=== PATIENT | female | born 1975 | race Caucasian/White ===

== ENCOUNTER 2022-11-03 09:50 | Observation (INO) ==
--- NOTE | 2022-06-14 15:51 | PAT Medication Instructions ---
Medication Instructions Date of Service June 14, 2022 Home Medications Medication Instructions Recorded ondansetron 4 mg disintegrating 4 mg PO Q6H PRN nausea and 09/13/21 tablet vomiting #12 tabs albuterol sulfate 90 mcg/actuation 1 inh inhalation QID PRN shortness 06/08/22 aerosol inhaler of breath or wheezing #8.5 grams prednisone 10 mg tablet See Rx Instructions PO DAILY #20 06/08/22 tabs lisinopril 2.5 mg tablet 2.5 mg PO QAM metformin 500 mg tablet 500 mg PO BID rizatriptan 10 mg tablet (Maxalt) 10 mg PO UD PRN sertraline 50 mg tablet (Zoloft) 50 mg PO QAM ibuprofen 200 mg tablet 400 mg PO Q6H PRN levonorgestrel 20 mcg/24 hours (8 yrs) 52 mg intrauterine device (Mirena) 20 mcg intrauterine UD melatonin 5 mg tablet 5 mg PO HS PRN zolpidem 5 mg tablet 5 mg PO HS PRN ondansetron 4 mg disintegrating tablet 4 mg PO Q6H PRN albuterol sulfate 90 mcg/actuation aerosol inhaler 1 inh inhalation QID PRN dextromethorphan polistirex 30 mg/5 mL oral susp ext.release 12hr (Robitussin ER) 10 ml PO Q12H PRN diphenhydramine HCl 25 mg capsule (Benadryl) 25 mg PO TID PRN prednisone 10 mg tablet See Rx Instructions PO DAILY Continue as directed prednisone 10 mg tablet See Rx Instructions PO DAILY rizatriptan 10 mg tablet (Maxalt) 10 mg PO UD PRN(if needed) levonorgestrel 20 mcg/24 hours (8 yrs) 52 mg intrauterine device (Mirena) 20 mcg intrauterine UD ondansetron 4 mg disintegrating tablet 4 mg PO Q6H PRN(if needed) ASK your surgeon for instructions ibuprofen 200 mg tablet 400 mg PO Q6H PRN DO NOT take the morning of surgery lisinopril 2.5 mg tablet 2.5 mg PO QAM metformin 500 mg tablet 500 mg PO BID dextromethorphan polistirex 30 mg/5 mL oral susp ext.release 12hr (Robitussin ER) 10 ml PO Q12H PRN diphenhydramine HCl 25 mg capsule (Benadryl) 25 mg PO TID PRN Take morning of surgery With a small sip of water, OTHERWISE NOTHING TO EAT OR DRINK AFTER MIDNIGHT: sertraline 50 mg tablet (Zoloft) 50 mg PO QAM albuterol sulfate 90 mcg/actuation aerosol inhaler 1 inh inhalation QID PRN(use if needed; please bring with you to hospital day of surgery if possible) Take evening before surgery metformin 500 mg tablet 500 mg PO BID melatonin 5 mg tablet 5 mg PO HS PRN(if needed) zolpidem 5 mg tablet 5 mg PO HS PRN(if needed) albuterol sulfate 90 mcg/actuation aerosol inhaler 1 inh inhalation QID PRN(if needed) dextromethorphan polistirex 30 mg/5 mL oral susp ext.release 12hr (Robitussin ER) 10 ml PO Q12H PRN(if needed) diphenhydramine HCl 25 mg capsule (Benadryl) 25 mg PO TID PRN(if needed) Other Notes If you have any questions please call us at [phone] or [phone] or [phone] or [phone]
--- NOTE | 2022-10-27 09:06 | Anesthesiology Consultation ---
Date of Service October 27, 2022 Assessment & Plan (1) Encounter for pre-operative examination: - COVID screening: Per assessment on 10/27: No known COVID-19 positive contacts or current COVID-19 related symptoms. Travel screen negative. Patient vaccinated. At surgeon discretion if preop Covid testing being done. - Check BSG, test AM DOS - Outpatient joint assessment: Pt currently scheduled for inpatient pathway. If surgeon requests review for outpatient joint pathway, patient is not recommended candidate for outpatient joint program from anesthesia standpoint. Chart Review Chart Review: Acceptable Risk for Surgery and Patient NOT seen in Pre Admission Testing History Surgery Operation Date: 11/03/22 07:00 Proposed Procedures p Left Total Knee Arthroplasty - Brian Yancey, Height/Weight Height: 5 ft 6 in Weight: 127.006 kg Allergies Allergy/AdvReac Type Severity Reaction Status Date / Time No Known Drug Allergies AdvReac Verified 10/27/22 08:11 CT dye AdvReac Intermediate Vomiting, Uncoded 10/27/22 08:11 nausea Medications Home Medications Medication Instructions Recorded Confirmed Last Taken rizatriptan 10 mg tablet (Maxalt) 10 mg PO UD PRN MIGRAINES 02/04/20 10/27/22 Unknown sertraline 50 mg tablet (Zoloft) 50 mg PO QAM 02/10/20 10/27/22 03/01/21 05:00 ibuprofen 200 mg tablet 400 mg PO Q6H PRN Pain 01/27/21 10/27/22 02/28/21 12:00 levonorgestrel 21 mcg/24 hours (8 20 mcg intrauterine UD 02/23/21 10/27/22 03/03/21 yrs) 52 mg intrauterine device (Mirena) melatonin 5 mg tablet 5 mg PO HS PRN Sleep 02/23/21 10/27/22 02/27/21 21:00 zolpidem 5 mg tablet 5 mg PO HS PRN Sleep 02/23/21 10/27/22 02/28/21 21:00 albuterol sulfate 90 mcg/actuation 1 inh inhalation QID PRN shortness 06/08/22 10/27/22 Unknown aerosol inhaler of breath or wheezing #8.5 grams diphenhydramine HCl 25 mg capsule 25 mg PO TID PRN Allergy Symptoms 06/08/22 10/27/22 Unknown (Benadryl) ondansetron 4 mg disintegrating 4 mg PO Q6H PRN nausea and 08/14/22 10/27/22 Unknown tablet vomiting #12 tabs cinnamon bark 500 mg capsule 1,000 mg PO QAM 09/14/22 10/27/22 Unknown lisinopril 20 1 tab PO QAM 09/14/22 10/27/22 Unknown mg-hydrochlorothiazide 12.5 mg tablet milk thistle 175 mg tablet 350 mg PO QAM 09/14/22 10/27/22 Unknown omeprazole 20 mg capsule,delayed 20 mg PO DAILY PRN REFLUX 09/14/22 10/27/22 Unknown release tramadol 50 mg tablet 50 mg PO Q8H PRN pain #30 tabs 10/17/22 10/27/22 Unknown glipizide 5 mg tablet 5 mg PO QAM 10/27/22 10/27/22 Unknown metformin 500 mg tablet,extended 500 mg PO QAM 10/27/22 10/27/22 Unknown release 24 hr vitamin-ferrous sulfate 1 tab PO QAM 10/27/22 10/27/22 Unknown 27 mg iron-folic acid 0.8 mg tablet Past Medical History Medical History (Updated 10/27/22 @ 08:10 by Whitney Mathews RN) Anxiety Diabetes mellitus, type 2 History of COVID-19 06/18/22>RESOLVED History of migraine Hypertension Morbid obesity with BMI of 45.0-49.9, adult Osteoarthritis PCOS (polycystic ovarian syndrome) Past Family History Family History Mother Breast cancer, Onset Age: 65 Denies family history of Ovarian cancer Prostate cancer Myocardial infarction Colorectal cancer Past Surgical History Surgical History (Updated 10/27/22 @ 08:16 by Whitney Mathews RN) History of arthroscopy of left knee History of D&C Nausea and vomiting after administration of anesthetic agent S/P section S/P laparoscopic procedure 20s, to look at ovaries S/P lumbar fusion S/P wisdom tooth extraction Slow to wake up after anesthesia Social History Smoking Status: Former smoker tobacco type: cigarettes Do You Dip or Chew Tobacco: No Smoking End Date: > 20 years ago Hx Alcohol Use: Yes Alcohol type: beer, wine and hard liquor alcohol intake frequency: holidays/special occasions only Hx Substance Use: No substance use type: does not use Lab Results Anesthesia Preop Results Results Anesthesia Widget: WBC 7.35 K/ul (4.8-10.8) 09/25/22 Hgb 14.7 g/dl (12.0-16.0) 09/25/22 Hct 43.4 % (37.0-47.0) 09/25/22 Plt 262 K/uL (130-400) 09/25/22 Na 138 mmol/L (136-145) 09/25/22 K 4.1 mmol/L (3.5-5.1) 09/25/22 Cl 106 mmol/L (98-107) 09/25/22 CO2 29 mmol/L (21-32) 09/25/22 BUN 10 mg/dl (6-23) 09/25/22 Creat 0.65 mg/dl (0.6-1.2) 09/25/22 Glucose Level 116 mg/dl (70-99(Fasting)) H 09/25/22 PT 10.2 Seconds (9.0-12.0) 09/25/22 PTT 27.7 Seconds (21.0-31.0) 09/25/22 INR 1.0 (0.9-1.1) 09/25/22 HA1c 6.7 % (4.5-5.6) H 09/25/22 Blood Type O Positive 09/25/22 Antibody Screen NEGATIVE 09/25/22 Testing Electrocardiogram Date: 06/18/22 NSR at 98bpm. Low voltage QRS. Septal infarct (cited on or before 01/27/21). 01/27/21 EKG was reviewed/used for preop testing for prior to 03/03/21 left knee arthroscopy done at [facility] without issue. Patient had PAT RN phone interview 10/27/22 in which patient denies SOB with stairs, no cardiopulmonary complaints.
[~2022-11-03 09:50] MED LIST: ACETAMINOPHEN 500 MG TAB PO SCH; FAMOTIDINE 20 MG TAB PO SCH; GABAPENTIN 300 MG CAP PO SCH; LR 500ML BOLUS, THEN 15ML/HR IV SCH; LR 60ML/HR IV SCH; ORTHO JOINT MIX INFIL SCH; ROPIVACAINE 0.5% 5 MG/ML 30 ML VIAL ONE; TRANEXAMIC ACID 1,000 MG **IV Intra-op IV SCH; TRANEXAMIC ACID 1,000 MG **IV Pre-op IV SCH; dexAMETHasone 4 MG TAB PO SCH
[2022-11-03] MEDS ORDERED: MIDAZOLAM HCL 1 MG/ML 2ML VIAL ONE ×2 (11:38→11:39)
[2022-11-03] MEDS ORDERED: PROPOFOL IV EMULSION 10 MG/ML 20 ML VIAL IV ONE ×3 (11:38→13:48)
[2022-11-03] MEDS ORDERED: fentaNYL citrate PF 100 MCG/2 ML VIAL ONE (11:39)
--- NOTE | 2022-11-03 12:06 | History & Physical Bridge Note ---
Date of Service November 03, 2022 History & Physical Bridge Note I have examined the patient, reviewed the History & Physical and in the interval since the performance of the History & Physical I have noted the following changes of clinical significance: no changes noted
[2022-11-03] MEDS ORDERED: ORTHO JOINT ANESTHETIC ONE (12:35)
[2022-11-03] MEDS ORDERED: fentaNYL citrate PF 100 MCG/2 ML VIAL IV PRN (12:48)
[2022-11-03] MEDS ORDERED: ePHEDrine sulfate 50 MG/ML AMP IV PRN (12:48)
[2022-11-03] MEDS ORDERED: ONDANSETRON INJ 2 MG/ML 2 ML VIAL IV PRN ×2 (12:48→16:10)
[2022-11-03] MEDS ORDERED: KETOROLAC 30 MG/ML VIAL IV PRN (12:48)
[2022-11-03] MEDS ORDERED: ATROPINE SULFATE 0.1 MG/ML 10ML SYR IV PRN (12:48)
[2022-11-03] MEDS ORDERED: ONDANSETRON INJ 2 MG/ML 2 ML VIAL ONE (13:16)
[2022-11-03] MEDS ORDERED: KETAMINE 50 MG/5 ML SYRINGE ONE (13:17)
[2022-11-03] MEDS ORDERED: GLYCOPYRROLATE 0.2 MG/ML VIAL ONE (13:19)
[2022-11-03] MEDS ORDERED: ceFAZolin 330 MG/ML 1 GM VIAL ONE (13:23)
--- NOTE | 2022-11-03 14:27 | Operative Report ---
PG Post Operative Report Pre & Post Diagnosis Operation Date: 11/03/22 12:50 Pre-Op Diagnosis: DJD Left Knee Post-Op Diagnosis: DJD Left Knee I identified the patient and participated in the time-out.: Yes Procedure Operation Date: 11/03/22 12:50 Actual Procedures p Left Total Knee Arthroplasty(Left) - Brian Yancey DO Surgeon Brian Yancey DO Education Reporter Dank Guillermo PA-C Estimated Blood Loss 30 Findings Consistent with Post-Op Diagnosis Specimens Left femoral tibial bone Description of Procedure Implants used: I used a Anjelica Persona total knee arthroplasty system with a size 8 narrow femur, D tibia, 31 oval patella, and a size 12 medial congruent polyethylene bearing. All components were cemented in place with Biomet cement. Parvin arrived [facility] for the above procedure. She was seen in the preoperative holding area and the operative extremity was identified and signed. She was given a preoperative antibiotic, TXA, a spinal anesthetic and an adductor nerve block. She was taken back to the operating room and laid on the table in supine position. She was given basic sedation. The operative knee was then prepped and draped in sterile fashion. A timeout was done, and the patient and the operative extremity was properly identified. A midline incision was made directly over the patella. Dissection was taken down to the extensor mechanism. A midvastus arthrotomy was used. The medial retinaculum was released and the fat pad was mostly excised. The knee was flexe d and the ACL, PCL, and meniscus were removed. A drill was sent down the center of the femoral canal followed by an intramedullary ivan. Off that ivan a distal femoral cutting block was placed. 9 mm was resected off the distal femur at 5 of valgus. A posterior referencing AP sizing guide was then placed on the distal femur. The femur measured to be a size 8. 2 drill holes were placed in 3 of external rotation. A 4-in-1 cutting block was then impacted into place. Anterior, posterior, and chamfer cuts were then made. The proximal tibia was then exposed. An external tibial alignment guide was placed. A tibial cut guide was then anchored in place and the proximal tibia was then resected. The posterior aspect of the knee was then opened up and any additional meniscus fragments and osteophytes were removed. The tibia measured to be a size D. The tibial plate was then placed in the appropriate rotation and the tibia was drilled and punched. Trial components were then placed. I used a size 12 medial congruent polyethylene insert. The knee was brought through a full range of motion and felt to be stable. The peg holes for the femoral component were then drilled. The patella was then everted and 9 mm was resected off the posterior aspect of the patella. The patella measured to be a size 31 oval. 3 peg holes were then drilled. A trial patella was placed. The knee was once again brought through a full range of motion and felt to be stable. Trial components were then removed. The surrounding soft tissues were injected with 100 cc of an orthopedic pain control cocktail. All components were then cemented into place with Biomet cement. The final polyethylene insert was then snapped into place. Once cement was dry the tourniquet was deflated. Hemostasis was obtained. A dilute betadyne lavage was then done for 3 minutes. The joint was then irrigated with normal saline solution. The midvastus arthrotomy was then closed with #1 Vicryl suture. The skin was closed with 2-0 Vicryl, 3-0V lock suture, and viki. A soft compressive dressing was placed. She was then transferred to a hospital bed and taken to the postanesthesia care unit in stable condition. She tolerated the procedure well. Dank Guillermo PA-C, was present for the entire procedure. He was critical for patient positioning, prepping, draping, retraction exposure, wound closure and application of sterile dressing. I attest to the content of the Intraoperative Record and any orders documented therein. Any exceptions are noted below.
--- NOTE | 2022-11-03 15:17 | XRay Report ---
LEFT KNEE 2 VIEWS History: Left total knee arthroplasty. Degenerative arthritis. Postop. FINDINGS: The patient is status post a left total knee arthroplasty. The hardware is intact. No fract ure or dislocation. Skin viki are in place. IMPRESSION: Left total knee arthroplasty. No evidence for hardware complication. ACT 112: Negative or not required by law. Electronically signed by: Noah Pan M.D. 11/03/2022 3:15 PM
[2022-11-03] MEDS ORDERED: SODIUM CHLORIDE 0.9% 1000ML 1,000 ML IV SCH (16:10)
[2022-11-03] MEDS ORDERED: ONDANSETRON 4 MG OD TAB PO PRN (16:10)
[2022-11-03] MEDS ORDERED: MAGNESIUM HYDROXIDE SUSP 30 ML UDC PO PRN (16:10)
[2022-11-03] MEDS ORDERED: bisacodyL 10 MG SUPP PR PRN (16:10)
[2022-11-03] MEDS ORDERED: diphenhydrAMINE Capsule 25 MG CAP PO PRN (16:10)
[2022-11-03] MEDS ORDERED: METOCLOPRAMIDE HCL INJ 5 MG/ML 2 ML VIAL IV PRN (16:10)
[2022-11-03] MEDS ORDERED: PHARMACY GLYCEMIC MGMT CONSULT PRN (16:10)
[2022-11-03] MEDS ORDERED: NALOXONE HCL 0.4 MG/1 ML VIAL/CARP IV PRN (16:10)
[2022-11-03] MEDS ORDERED: RIZATRIPTAN BENZOATE 10 MG TAB PO PRN (16:10)
[2022-11-03] MEDS ORDERED: ALBUTEROL HFA 8 GM INHALER INH PRN (16:10)
[2022-11-03] MEDS ORDERED: MELATONIN 3 MG TAB PO PRN (16:17)
--- NOTE | 2022-11-03 16:31 | Anesthesiology Progress Note ---
Date of Service November 03, 2022 Anesthesia Post Procedure Vital Signs Vital Signs: Temp Pulse Pulse Pulse Resp BP Pulse Ox 11/03/22 16:03 36.7 C 89 16 117/80 93 11/03/22 15:50 84 18 114/87 94 11/03/22 15:35 92 H 18 129/90 94 11/03/22 15:20 36.3 C L 93 H 16 105/69 94 11/03/22 15:10 107 H 13 116/83 95 11/03/22 15:00 105 H 20 114/80 96 11/03/22 14:53 36.2 C L 101 H 14 122/74 98 11/03/22 10:32 36.8 C 93 H 20 129/84 97 O2 Del Method O2 Flow Rate 11/03/22 16:03 Room Air 11/03/22 15:50 Room Air 11/03/22 15:35 Room Air 11/03/22 15:20 Room Air 11/03/22 15:10 Room Air 11/03/22 15:00 Oxymask 4 11/03/22 14:53 Oxymask 6 11/03/22 10:32 Room Air Transfer of Care Handoff Completed per policy Notes Mental Status: alert / awake / arousable Patient Amnestic to Procedure: Yes Nausea / Vomiting: adequately controlled Pain: adequately controlled Airway Patency, RR, SpO2: stable & adequate BP & HR: stable & adequate Hydration State: stable & adequate Neuraxial Anesthesia: was administered and sensory block is resolving Anesthetic Complications: no major complications apparent
[2022-11-03] MEDS ORDERED: PANTOprazole 40 MG TAB PO PRN (16:34)
[2022-11-03] MEDS ORDERED: CARBOHYDRATES FOR HYPOGLYCEMIA PO PRN (17:15)
[2022-11-03] MEDS ORDERED: DEXTROSE 50% 50 ML SYRINGE IV PRN (17:15)
[2022-11-03] MEDS ORDERED: GLUCOSE 10 TAB/TUBE PO PRN (17:15)
[2022-11-03] MEDS ORDERED: GLUCAGON FOR INJ 1 MG VIAL IM PRN (17:15)
[2022-11-03] MEDS ORDERED: GLUCOSE 40% GEL 15 GM TUBE PO PRN (17:15)
[2022-11-03] MEDS: INSULIN ASPART PER UNIT CHARGE SC SCH ×2 (17:57→20:36)
[2022-11-03] MEDS ORDERED: LANTUS PER UNIT CHARGE SQ ONE (18:45)
[2022-11-03] MEDS: oxyCODONE HCL IR 5 MG TAB (IMMEDIATE RELEASE) PO PRN ×2 (19:30→23:28)
[2022-11-03] MEDS: ASPIRIN 81 MG ECTAB PO SCH (20:38)
[2022-11-03] MEDS: DOCUSATE SODIUM 100 MG CAP PO SCH (20:38)
[2022-11-03] MEDS ORDERED: SENNA 8.6 MG TAB PO SCH (21:00)
[2022-11-03] MEDS: ceFAZolin 2000MG 2,000 MG/15 ML SYR IV SCH (21:51)
[2022-11-04] MEDS: ceFAZolin 2000MG 2,000 MG/15 ML SYR IV SCH (05:41)
--- NOTE | 2022-11-04 06:48 | Orthopedic Progress Note ---
Date of Service November 04, 2022 Assessment & Plan (1) Status post left knee replacement: Overall she is doing very well. She is not having much pain in the left knee. She will be seen by physical therapy today for ambulation and range of motion exercises. She can be discharged home later today. She is on aspirin for DVT prophylaxis. She will follow-up with orthopedics in 2 weeks. Jet Barber was seen and examined at bedside this morning. Overall she is doing very well. She is not having much pain in the left knee. She has been up and ambulating to the bathroom. She has no complaints.. Review of Systems All systems reviewed & are unremarkable except as noted in HPI & below. Physical Exam On physical examination of left knee, the dressing is clean and dry. Her leg is out full extension. She has active dorsiflexion plantarflexion of her left ankle.. Results & Data Results & Data Laboratory Results . Diagnostic Findings Postoperative x-rays of the left knee show the prosthesis to be in anatomic alignment without any evidence of fracture, cage, or loosening.. PG Care Time/CCT Total # of Minutes Spent Total Time Spent with Patient: Total time spent is greater than 50% in coordination of care (as documented) at patient's floor/unit and/or counseling patient: Coding Level of Care Code 95287 Post Operative Follow-Up Diagnoses Status post left knee replacement Z96.652
--- NOTE | 2022-11-04 06:49 | Discharge Summary ---
Date of Service November 04, 2022 Principal Diagnosis Same as "Discharge Diagnosis" noted below under Discharge Instructions. Discharge Exam On physical examination of left knee, the dressing is clean and dry. Her leg is out full extension. She has active dorsiflexion plantarflexion of her left ankle.. Discharge Data Procedures Performed Operation Date: 11/03/22 12:50 Actual Procedures p Left Total Knee Arthroplasty(Left) - Brian Yancey DO Ordered Studies 11/03/22 05:00 US - OR guided needle placemen Routine Hospital Course (1) Status post left knee replacement: On November 03, 2022 [place] arrived at [facility] and underwent a left knee replacement without complication. She had a spinal anesthetic. Postoperatively she was started on aspirin for DVT prophylaxis and transferred to the general orthopedic floors. Her hospital course was uneventful. On postop day #1, her vital signs were stable and her pain was well controlled. She was able to participate well with physical therapy doing ambulation and range of motion exercises. She was then discharged home. She will follow-up with orthopedics in 2 weeks. PG Care Time/CCT Total # of Minutes Spent Total Time Spent with Patient: Total time spent is greater than 50% in coordination of care (as documented) at patient's floor/unit and/or counseling patient: Discharge Plan Discharge Items Patient Disposition: Home - Home Health Services Reason For Visit: POST OP Discharge Diagnosis: Left knee replacement Activity: Per Instructions section Non-emergency contact: Surgeon Call non-emergency contact if: your wound has increased redness and your wound has increased drainage Follow-up/Referrals: Felisha Steven CRNP [Primary Care Provider] - Diet: Regular Addtl Attending Provider Instructions: Activity and Therapy Recommendations: * If you are using [facility] then therapy will be provided at your home until they feel you have accomplished all of your goals. * If you are using [facility] then Physical Therapy will be provided until they feel you are ready to start Outpatient Physical Therapy. * If you are not using home therapy then Outpatient Physical Therapy should start about 3-5 days from your day of surgery. Therapy will last about 6-10 weeks * It is important not to put a pillow under your knee when you are relaxing or sleeping. It is just as important to make sure you are getting your knee perfectly straight as it is to regain your knee bend. * You were shown a series of exercises in the hospital. Do these exercises three times each day including the exercises you were shown in physical therapy. * Get up and walk several times each day. For the first four weeks, try not to stand or walk for more than one hour at a time. If you do stand or walk for more than one hour, you will not hurt anything, but your leg will likely swell. * As you feel comfortable, you may change from the walker or crutches to a cane and then to independent walking. Medications: * Narcotic You will likely be sent home from the hospital with a prescription for the narcotic pain medication that worked best throughout your stay. * Aspirin Most patients will be required to take Aspirin 81mg twice a day for 6 weeks after surgery. This is obtained [id number] and a prescription is not necessary. * Other medications may be prescribed for specific circumstances. If you have any questions, please call the office at . * Resume previous home medications unless otherwise instructed TEDs/Elastic Stockings: The white elastic stockings help limit swelling and prevent blood clots from forming in your legs.~ The more you wear them, the more they work. Wear them for six weeks. Dressing Care: The dressing can be changed after physical therapy on postop day #1. Daily dry dressing changes for a few days, especially if the incision is still draining some. If the incision is not draining then you may leave the viki open to air. If there is a little bit of drainage or if the viki are getting stuck on your clothing then cover the incision with a dry dressing. The viki will be removed at your 2 week follow-up appointment. Showering: You may shower 5 days from the day of surgery as long as the incision is no longer draining. You may shower with the viki exposed. Let soapy water run over the viki and pat them dry. Do not scrub or soak the incision. Things To Watch For: * Drainage from the incision site that occurs more than one week after your surgery. * Increased redness at the incision site. * Fever above 102 degrees Fahrenheit. * Unusual chest pain or shortness of breath. * Call [facility] at with any of the above problems Follow-Up Visit: Follow-up with Dr. Yancey's PA (Brian Patiño) 2-3 weeks after your day of surgery. He will remove your viki and answer any questions. If you have any additional questions or concerns, Dr Yancey is usually in the office at the same time and will be available An appointment was probably scheduled when you signed-up for surgery in the office. If you have any questions call Office Instructions: More detailed instructions as well as Frequently Asked Questions were provided in a folder by our office when you signed-up for surgery. Please review these instructions when you get home. If you have any further questions or concerns, please feel free to call the office at [phone] Pending Studies at Discharge: No Stand-Alone Forms: My [facility] Medications and DC Order Prescriptions: New aspirin [Adult Aspirin Regimen] 81 mg tablet,delayed release (DR/EC) 81 mg PO BID Qty: 84 0RF oxycodone-acetaminophen 5-325 mg tablet 1 tab PO Q6H PRN (Reason: pain) Qty: 30 0RF Continued ondansetron 4 mg tablet,disintegrating 4 mg PO Q6H PRN (Reason: nausea and vomiting) Qty: 12 0RF glipizide 10 mg tablet extended release 24hr 10 mg PO DAILY Qty: 30 2RF zolpidem 5 mg tablet 5 mg PO HS PRN (Reason: Sleep) Qty: 30 0RF rizatriptan [Maxalt] 10 mg tablet 10 mg PO UD PRN (Reason: MIGRAINES) sertraline [Zoloft] 50 mg tablet 50 mg PO QAM diphenhydramine HCl [Benadryl] 25 mg capsule 25 mg PO TID PRN (Reason: Allergy Symptoms) albuterol sulfate 90 mcg/actuation HFA aerosol inhaler 1 inh inhalation QID PRN (Reason: shortness of breath or wheezing) Qty: 8.5 0RF omeprazole 20 mg capsule,delayed release(DR/EC) 20 mg PO DAILY PRN (Reason: REFLUX) lisinopril-hydrochlorothiazide 20-12.5 mg tablet 1 tab PO QAM milk thistle 175 mg tablet 350 mg PO QAM Rx Instructions: give with meal/snack cinnamon bark 500 mg capsule 1,000 mg PO QAM tramadol 50 mg tablet 50 mg PO Q8H PRN (Reason: pain) Qty: 30 0RF ibuprofen 200 mg Tablet 400 mg PO Q6H PRN (Reason: Pain) 27 mg iron- 0.8 mg Tablet 1 tab PO QAM metformin 500 mg tablet extended release 24 hr 500 mg PO QAM melatonin 5 mg Tablet 5 mg PO HS PRN (Reason: Sleep) Mirena 20 mcg/24 hours (6 yrs) 52 mg Intrauterine Device 20 mcg INTRAUTERINE UD Rx Instructions: in place Admission Data Admit Date/Time: 11/03/22 14:55 Attending Provider: Brian Yancey Admit Provider: Brian Yancey Primary Care Provider: Felisha Steven
[2022-11-04] MEDS: oxyCODONE HCL IR 5 MG TAB (IMMEDIATE RELEASE) PO PRN ×2 (07:16→12:01)
[2022-11-04] MEDS ORDERED: LANTUS PER UNIT CHARGE SQ ONE (08:00)
[2022-11-04] MEDS ORDERED: dexAMETHasone 4 MG TAB PO SCH (08:00)
[2022-11-04] MEDS: INSULIN ASPART PER UNIT CHARGE SC SCH ×2 (08:28→12:37)
[2022-11-04] MEDS: DOCUSATE SODIUM 100 MG CAP PO SCH (08:29)
[2022-11-04] MEDS: ASPIRIN 81 MG ECTAB PO SCH (08:29)
[2022-11-04] MEDS ORDERED: MULTIVITAMIN TAB PO SCH (09:00)
[2022-11-04] MEDS ORDERED: SERTRALINE HCL 50 MG TABLET PO SCH (09:00)
[2022-11-04] MEDS ORDERED: LISINOPRIL/HCTZ 20/12.5MG 1 TAB TAB PO SCH (09:00)
== END 2022-11-04 12:49 | disposition home health service (06) ==
LOC: 3E 09:50 → ASU 09:50